=== PATIENT | male | born 1990 | race Caucasian/White ===

== ENCOUNTER 2019-03-23 02:39 | Emergency (ER) | payer OTHER ==
[~2019-03-23] VITALS: Ht 182.9 cm; Wt 113.4 kg
[2019-03-23] MEDS ORDERED: PROZAC20 MG PO (02:47)
[2019-03-23] MEDS ORDERED: NAPROSYN500 MG PO (04:07)
[2019-03-23 04:10] VITALS: BP 136/75
== END 2019-03-23 04:40 | disposition home or self-care (01) ==
LOC: ER 02:39
DX: M25.561 Pain in right knee (principal); M25.562 Pain in left knee; F17.210 Nicotine dependence, cigarettes, uncomplicated; F32.9 Major depressive disorder, single episode, unspecified